=== PATIENT | female | born 1965 | race African-American/Black ===

== ENCOUNTER 2022-03-11 04:13 | Day surgery (SDC) | payer BC ==
[2022-03-09 14:55] VITALS: BMI 38.3
[2022-03-11] MEDS ORDERED: BUPIVACAINE HCL/PF 0.5% (5MG/ML) 10 ML VIAL ONE (07:39)
[2022-03-11] MEDS ORDERED: LIDOCAINE 1%/EPI 1:100000 (20 ML MULTI DOSE VIAL) ONE (07:40)
[2022-03-11] MEDS ORDERED: PROPOFOL 20 ML ONE (09:11)
[2022-03-11] MEDS ORDERED: MIDAZOLAM HCL 2 MG/2 ML SINGLE DOSE VIAL ONE (09:11)
[2022-03-11] MEDS ORDERED: LIDOCAINE HCL/PF 2% SDV 5ML VIAL ONE (09:11)
[2022-03-11] MEDS ORDERED: DEXAMETHASONE SOD PHOSPHATE 4 MG/1 ML VIAL ONE (09:11)
[2022-03-11] MEDS ORDERED: LIDOCAINE 1%/EPI 1:100000 (50 ML MULTI DOSE VIAL) INF ONE (09:33)
[2022-03-11] MEDS ORDERED: BUPIVACAINE HCL/PF 0.5% (5 MG/ML) 30 ML VIAL IJ ONE (09:34)
[2022-03-11] MEDS ORDERED: oxyCODONE HCL 5 MG TABLET PO PRN ×2 (09:51)
[2022-03-11] MEDS ORDERED: ONDANSETRON 4 MG/2 ML VIAL IVPUSH PRN (09:51)
[2022-03-11] MEDS ORDERED: LACTATED RINGERS SOLUTION 1,000 ML IV SCH (10:00)
[2022-03-11] MEDS ORDERED: FENTANYL CITRATE/PF 50 MCG/ML VIAL ONE ×2 (10:14→11:23)
[2022-03-11 12:37] VITALS: TEMP 97.6
[2022-03-11] MEDS ORDERED: ONDANSETRON *ODT* 4 MG TABLET ONE (13:54)
[2022-03-11 17:24] VITALS: BP 145/80; PULSE 78
== END 2022-03-11 14:50 | disposition home or self-care (01) ==
LOC: JASU-SURG 04:13
PROVIDERS: ATTEND Orthopaedic Surgery
PROC: 0SBC4ZZ Excision of Right Knee Joint, Percutaneous Endoscopic Approach (ICD-10-PCS; 2022-03-11)
PROC: 0SBC4ZZ Excision of Right Knee Joint, Percutaneous Endoscopic Approach (ICD-10-PCS; principal; 2022-03-11 08:45)
DX: M23.251 Derangement of posterior horn of lateral meniscus due to old tear or injury, right knee (principal); M23.261 Derangement of other lateral meniscus due to old tear or injury, right knee
CPT/HCPCS: 94760; Q0162